=== PATIENT | male | born 1960 | race American Indian/Alaskan Native ===

== ENCOUNTER 2019-12-06 10:12 | Outpatient (CLI) | payer OTHER ==
--- NOTE | 2019-12-06 10:59 | XRay Report ---
Lumbar spine 4 views INDICATION: Low back pain IMPRESSION: Mild to moderate multilevel discogenic and facet hypertrophic arthropathy present primari ly at L4-L5 and L5-S1. No severe neural foraminal stenosis identified. Signer Name: Robert Tomlin MD Signed: 12/06/2019 10:55 AM Workstation Name: [id number]
== END 2019-12-06 10:13 | disposition home or self-care (01) ==
LOC: XRAY 10:12
PROVIDERS: ATTEND Internal Medicine
DX: Z02.71 Encounter for disability determination (principal); M12.88 Other specific arthropathies, not elsewhere classified, other specified site
CPT/HCPCS: 72100